=== PATIENT | male | born 1960 | race Caucasian/White ===

== ENCOUNTER 2023-04-13 21:46 | Inpatient (IN) | payer MEDICARE ==
[~2023-04-13] VITALS: Ht 167.6 cm; Wt 70.3 kg
[2023-04-13] MEDS ORDERED: ADENOSINE 3 MG/ML 2ML VIAL IV ONE ×2 (22:15→22:45)
[2023-04-13] MEDS ORDERED: ACETAMINOPHEN 500MG TABLET PO ONE (22:30)
[2023-04-13] MEDS ORDERED: MIDAZOLAM HCL 2 MG/2 ML VIAL IV NR (22:30)
[2023-04-13] MEDS ORDERED: MIDAZOLAM HCL 2 MG/2 ML VIAL IV ONE (22:30)
[2023-04-13] MEDS ORDERED: ADENOSINE 3 MG/ML 2ML VIAL IV NR (22:30)
[2023-04-13] MEDS ORDERED: ACETAMINOPHEN 500MG TABLET PO NR (22:45)
[2023-04-13 22:47] LABS: BASOPHILS % 0.1 % (0.0-2.0); EOSINOPHILS % 0.1 % (0.0-5.0); HEMOGLOBIN. 13.7 g/dL (14.0-18.0); LYMPHOCYTES % 10.4 % (20.0-50.0); MEAN CORPUSCULAR HEMOGLOBIN 27.1 pg (28.0-32.0); MEAN CORPUSCULAR HGB CONC 32.7 g/dL (31.0-37.0); MEAN PLATELET VOLUME 8.3 fl (7.4-10.4); MONOCYTES % 7.5 % (2.0-8.0); NEUTROPHILS % 81.9 % (40.0-76.0); PLATELET 229 x1000/uL (130-400); RED BLOOD CELL COUNT 5.06 mill/uL (4.7-6.1); RED CELL DISTRIBUTION WIDTH 15.1 % (11.6-14.6); WHITE BLOOD COUNT 18.8 x1000/uL (4.5-11.0)
[2023-04-13] MEDS ORDERED: CEFTRIAXONE 1GM PREMIX 50 ML IV NR (23:00)
[2023-04-13] MEDS ORDERED: SODIUM CHLORIDE 0.9% 1,000 ML IV NR (23:00)
[2023-04-13] MEDS ORDERED: DILTIAZEM HCL 5MG/ML 5ML VIAL IV NR (23:00)
[2023-04-13 23:02] LABS: BG BASE EXCESS 0.3 mmol/L (-2.0-2.0); BG CARBOXYHEMOGLOBIN 0.3 % (0.5-1.5); BG DEOXYHEMOGLOBIN 2.7 % (0.0-5.0); BG FRACTION INSPIRED OXYGEN 44; BG HCO3 ACT 23.8 mmol/L (22.0-26.0); BG METHEMOGLOBIN 0.3 % (0.0-1.5); BG OXYGEN SATURATION 97.3 % (92.0-98.5); BG OXYHEMOGLOBIN 96.7 % (94.0-97.0); BG PCO2 35.3 mmHg (35.0-45.0); BG PH 7.446 (7.350-7.450); BG PO2 97.1 mmHg (75.0-100.0); BG SAMPLE SITE LEFT RADIAL; BG TOTAL HEMOGLOBIN 15.5 g/dL (12.0-18.0); BG VENT MODE NASAL CANNULA
[2023-04-13 23:15] LABS: ALANINE AMINOTRANSFERASE 65 IU/L (10-49); ALBUMIN 4.5 g/dL (3.2-4.8); ASPARTATE AMINOTRANSFERASE 47 IU/L (<34); BILIRUBIN TOTAL 1.1 mg/dL (0.1-1.0); CALCIUM 9.4 mg/dL (8.7-10.4); CARBON DIOXIDE 28 mEq/L (21-32); CHLORIDE 99 mEq/L (98-107); CREATININE 0.8 mg/dL (0.6-1.3); GLUCOSE 150 mg/dL (70-105); POTASSIUM 3.2 mEq/L (3.5-5.1); PROTEIN TOTAL 7.8 g/dL (6.0-8.3); SODIUM 136 mEq/L (136-145); T4 FREE 1.36 ng/dL (0.89-1.76); TROPONIN I HIGH SENSITIVITY 5 ng/L (3.0-53); UREA NITROGEN BLOOD 11 mg/dL (9-23)
[2023-04-13] MEDS ORDERED: SODIUM CHLORIDE 0.9% 1000ML BAG (SEPSIS BOLUS) IV NR (23:15)
[2023-04-13 23:23] LABS: ETHANOL BLOOD < 10 mg/dL (<10)
[2023-04-14] MEDS ORDERED: POTASSIUM CHLORIDE 20MEQ/PACKET PO NR (01:15)
[2023-04-14] MEDS ORDERED: IPRATROPIUM/ALBUTEROL 0.5-3(2.5)MG/3ML NEB HHN PRN ×2 (04:15→14:00)
[2023-04-14] MEDS ORDERED: ONDANSETRON HCL 4MG/2ML INJ IV PRN (04:15)
[2023-04-14] MEDS ORDERED: SODIUM CHLORIDE 0.9% 1,000 ML IV SCH (04:15)
[2023-04-14] MEDS ORDERED: LORAZEPAM 0.5MG TABLET PO PRN (04:45)
[2023-04-14 04:58] LABS: INR 1.1; PROTHROMBIN TIME 11.6 sec (9.6-11.0)
[2023-04-14] MEDS: GUAIFENESIN 600MG ER TABLET PO SCH ×2 (05:09→21:00)
[2023-04-14] MEDS: ACETAMINOPHEN 325MG TABLET PO PRN (05:28)
[2023-04-14] MEDS ORDERED: AZITHROMYCIN 500MG/250ML 250 ML IV SCH (06:30)
[2023-04-14] MEDS ORDERED: GUAIFENESIN 200MG/10ML SUGAR FREE UDC PO SCH (09:00)
[2023-04-14] MEDS: PANTOPRAZOLE SODIUM 40 MG/VIAL IV SCH (09:35)
[2023-04-14] MEDS ORDERED: CEFTRIAXONE 1GM PREMIX 50 ML IV SCH (11:00)
[2023-04-14 11:10] VITALS: BP 136/87; PULSE 102; RESP 19; TEMP 97.9
[2023-04-14 12:00] VITALS: BP 136/87; PULSE 102; RESP 19; TEMP 97.9
[2023-04-14] MEDS ORDERED: GUAIFENESIN-DM 200MG-20MG/10ML UDC PO NR (15:00)
[2023-04-14 16:00] VITALS: BP 105/60; PULSE 98; RESP 20; TEMP 97.9
[2023-04-14] MEDS ORDERED: IPRATROPIUM/ALBUTEROL 0.5-3(2.5)MG/3ML NEB HHN SCH (16:00)
[2023-04-14] MEDS: METHYLPREDNISOLONE SOD SUCC 40MG/ML (ACT-O-VIAL) IV SCH ×2 (17:30→21:00)
[2023-04-14 17:33] LABS: CREATINE KINASE MB FRACTION 3.2 ng/mL (0.5-3.6)
[2023-04-14 20:00] VITALS: BP 133/76; PULSE 104; RESP 20; TEMP 97.3
[2023-04-14 20:52] VITALS: PULSE 96; RESP 20; O2SAT 96
[2023-04-14] MEDS: ATORVASTATIN CALCIUM 10MG TABLET PO SCH (21:00)
[2023-04-14] MEDS: IPRATROPIUM BROMIDE (0.02%) 0.5MG/2.5ML NEB HHN SCH (21:07)
[2023-04-14] MEDS: BUDESONIDE 0.5MG/2ML NEB HHN SCH (21:11)
[2023-04-14] MEDS: CEFTRIAXONE 1GM PREMIX 50 ML IV SCH (22:30)
[2023-04-15] VITALS (12 sets, daily range): BP systolic 128–141; BP diastolic 66–86; PULSE 82–112; RESP 17–22; TEMP 95–98.6; O2SAT 96–98
[2023-04-15] MEDS: IPRATROPIUM BROMIDE (0.02%) 0.5MG/2.5ML NEB HHN SCH ×6 (01:17→21:50)
[2023-04-15] MEDS: METHYLPREDNISOLONE SOD SUCC 40MG/ML (ACT-O-VIAL) IV SCH ×3 (05:39→21:51)
[2023-04-15] MEDS: AZITHROMYCIN 500MG/250ML 250 ML IV SCH (06:33)
[2023-04-15 06:53] LABS: HEMATOCRIT. 37.4 % (42.0-52.0); HEMOGLOBIN. 11.9 g/dL (14.0-18.0); LYMPHOCYTES % 8.3 % (20.0-50.0); MEAN CORPUSCULAR HEMOGLOBIN 26.5 pg (28.0-32.0); MEAN CORPUSCULAR HGB CONC 31.8 g/dL (31.0-37.0); MEAN CORPUSCULAR VOLUME 83.4 fL (80.0-94.0); MEAN PLATELET VOLUME 8.5 fl (7.4-10.4); MONOCYTES % 5.2 % (2.0-8.0); NEUTROPHILS % 86.5 % (40.0-76.0); PLATELET 243 x1000/uL (130-400); RED BLOOD CELL COUNT 4.49 mill/uL (4.7-6.1); RED CELL DISTRIBUTION WIDTH 15.2 % (11.6-14.6); WHITE BLOOD COUNT 13.5 x1000/uL (4.5-11.0)
[2023-04-15 07:17] LABS: ALANINE AMINOTRANSFERASE 43 IU/L (10-49); ALBUMIN 3.6 g/dL (3.2-4.8); ASPARTATE AMINOTRANSFERASE 28 IU/L (<34); BILIRUBIN TOTAL 0.4 mg/dL (0.1-1.0); CALCIUM 8.9 mg/dL (8.7-10.4); CARBON DIOXIDE 26 mEq/L (21-32); CHLORIDE 104 mEq/L (98-107); CHOLESTEROL 132 mg/dL (<200); CREATININE 0.7 mg/dL (0.6-1.3); GLUCOSE 149 mg/dL (70-105); HDL CHOLESTEROL 34 mg/dL (>55); LDL CHOLESTEROL 74 mg/dL (5-100); POTASSIUM 3.8 mEq/L (3.5-5.1); PROTEIN TOTAL 7.4 g/dL (6.0-8.3); SODIUM 138 mEq/L (136-145); TRIGLYCERIDE 116 mg/dL (0-150); UREA NITROGEN BLOOD 12 mg/dL (9-23)
[2023-04-15] MEDS: BUDESONIDE 0.5MG/2ML NEB HHN SCH ×2 (07:55→21:50)
[2023-04-15] MEDS: PANTOPRAZOLE SODIUM 40 MG/VIAL IV SCH (08:34)
[2023-04-15] MEDS: GUAIFENESIN 600MG ER TABLET PO SCH ×2 (08:34→21:52)
[2023-04-15] MEDS: ACETAMINOPHEN 325MG TABLET PO PRN (21:51)
[2023-04-15] MEDS: ATORVASTATIN CALCIUM 10MG TABLET PO SCH (21:52)
[2023-04-15] MEDS: CEFTRIAXONE 1GM PREMIX 50 ML IV SCH (23:01)
[2023-04-16] VITALS (12 sets, daily range): BP systolic 129–160; BP diastolic 68–82; PULSE 68–101; RESP 18–20; TEMP 97–98.2; O2SAT 96
[2023-04-16] MEDS: IPRATROPIUM BROMIDE (0.02%) 0.5MG/2.5ML NEB HHN SCH ×6 (00:39→21:31)
[2023-04-16] MEDS: AZITHROMYCIN 500MG/250ML 250 ML IV SCH (06:03)
[2023-04-16] MEDS: METHYLPREDNISOLONE SOD SUCC 40MG/ML (ACT-O-VIAL) IV SCH ×3 (06:03→22:05)
[2023-04-16] MEDS: GUAIFENESIN 600MG ER TABLET PO SCH ×2 (09:56→22:06)
[2023-04-16] MEDS: PANTOPRAZOLE SODIUM 40 MG/VIAL IV SCH (09:56)
[2023-04-16] MEDS: BUDESONIDE 0.5MG/2ML NEB HHN SCH ×2 (10:11→21:31)
[2023-04-16] MEDS: ATORVASTATIN CALCIUM 10MG TABLET PO SCH (22:06)
[2023-04-16] MEDS: CEFTRIAXONE 1GM PREMIX 50 ML IV SCH (23:27)
[2023-04-17] VITALS (8 sets, daily range): BP systolic 104–172; BP diastolic 90–91; PULSE 77–95; RESP 2–20; TEMP 97.7–97.9; O2SAT 96–98
[2023-04-17] MEDS: IPRATROPIUM BROMIDE (0.02%) 0.5MG/2.5ML NEB HHN SCH ×4 (00:24→13:24)
[2023-04-17] MEDS: AZITHROMYCIN 500MG/250ML 250 ML IV SCH (05:50)
[2023-04-17] MEDS: METHYLPREDNISOLONE SOD SUCC 40MG/ML (ACT-O-VIAL) IV SCH ×2 (05:51→14:00)
[2023-04-17] MEDS ORDERED: PANTOPRAZOLE 40MG DR TABLET PO SCH (06:40)
[2023-04-17 07:01] LABS: HEMATOCRIT. 38.4 % (42.0-52.0); HEMOGLOBIN. 12.7 g/dL (14.0-18.0); MEAN CORPUSCULAR HEMOGLOBIN 26.9 pg (28.0-32.0); MEAN CORPUSCULAR HGB CONC 33.2 g/dL (31.0-37.0); MEAN CORPUSCULAR VOLUME 81.2 fL (80.0-94.0); MEAN PLATELET VOLUME 8.2 fl (7.4-10.4); PLATELET 310 x1000/uL (130-400); RED BLOOD CELL COUNT 4.72 mill/uL (4.7-6.1); RED CELL DISTRIBUTION WIDTH 14.8 % (11.6-14.6); WHITE BLOOD COUNT 16.7 x1000/uL (4.5-11.0)
[2023-04-17 07:37] LABS: ALANINE AMINOTRANSFERASE 60 IU/L (10-49); ASPARTATE AMINOTRANSFERASE 38 IU/L (<34); BILIRUBIN TOTAL 0.3 mg/dL (0.1-1.0); CALCIUM 8.8 mg/dL (8.7-10.4); CARBON DIOXIDE 27 mEq/L (21-32); CHLORIDE 101 mEq/L (98-107); CREATININE 0.8 mg/dL (0.6-1.3); GLUCOSE 198 mg/dL (70-105); POTASSIUM 3.8 mEq/L (3.5-5.1); PROTEIN TOTAL 7.3 g/dL (6.0-8.3); SODIUM 136 mEq/L (136-145); UREA NITROGEN BLOOD 18 mg/dL (9-23)
[2023-04-17 08:00] LABS: DIFFERENTIAL COMMENT 1
[2023-04-17] MEDS: BUDESONIDE 0.5MG/2ML NEB HHN SCH (09:32)
[2023-04-17] MEDS: GUAIFENESIN 600MG ER TABLET PO SCH (09:47)
[2023-04-18 13:17] LABS: PLATELET ESTIMATE NORMAL
== END 2023-04-17 15:30 | disposition home or self-care (01) | DRG 871 ==
LOC: ER 21:46 → 5WST 04-14 → 7EST 04-14 10:27
PROVIDERS: ADMIT Hospitalist; ATTEND Hospitalist
PROC: 5A09357 Assistance with Respiratory Ventilation, Less than 24 Consecutive Hours, Continuous Positive Airway Pressure (ICD-10-PCS; principal; 2023-04-13)
PROC: 5A09357 Assistance with Respiratory Ventilation, Less than 24 Consecutive Hours, Continuous Positive Airway Pressure (ICD-10-PCS; 2023-04-15)
DX: A41.9 Sepsis, unspecified organism (principal); J96.20 Acute and chronic respiratory failure, unspecified whether with hypoxia or hypercapnia; E87.20 Acidosis, unspecified; I47.10 Supraventricular tachycardia, unspecified; J44.1 Chronic obstructive pulmonary disease with (acute) exacerbation; K21.9 Gastro-esophageal reflux disease without esophagitis; E87.6 Hypokalemia; E03.8 Other specified hypothyroidism; J84.10 Pulmonary fibrosis, unspecified; E78.00 Pure hypercholesterolemia, unspecified; F41.0 Panic disorder [episodic paroxysmal anxiety]; R65.20 Severe sepsis without septic shock; M10.9 Gout, unspecified; I10 Essential (primary) hypertension; G47.00 Insomnia, unspecified; Z79.899 Other long term (current) drug therapy; Z90.49 Acquired absence of other specified parts of digestive tract; Z99.81 Dependence on supplemental oxygen; Z85.038 Personal history of other malignant neoplasm of large intestine
CPT/HCPCS: 36415; 36600; 71045; 80053; 80061; 80320; 82375; 82553; 82805; 83605; 83880; 84145; 84439; 84443; 84481; 84484; 85025; 85379; 87070; 87077; 87186; 87426; 87804; 93005; 93970; 94640; 97162; 97166; 97535; 99291; C9113; J0153; J0456; J0696; J2250; J2920; J3490; J7626; G0480